=== PATIENT | female | born 1960 | race Caucasian/White ===

== ENCOUNTER 2024-10-26 08:39 | Outpatient (OUT) | payer MEDICARE, SELFPAY ==
--- NOTE | 2024-10-26 09:00 | CA_ITS ---
Patient Name: RENA PORTILLO MR#: [id number] : 1960 Exam Date: 10/26/2024 Ordering Doctor: BELKIS DUPONT M.D. ECHOCARDIOGRAM REPORT PROCEDURE: CA ECHO DOPPLER COMPLETE INDICATIONS: Nonrheumatic tricuspid regurgitation, hypertension COMPARISON: None. DESCRIPTION: COMPLETE ECHOCARDIOGRAM Real-time transthoracic echocardiography with 2D, M-mode, spectral and color flow Doppler performed. QUALITY: Technical quality was good. LEFT VENTRICLE: Normal chamber size. Mild concentric left ventricular hypertrophy. Calculated left ventricular ejection fraction is 66%. LV EF: Global left ventricular systolic function is normal; visually estimated ejection fraction is 60 to 65%. No significant wall motion abnormalities. DIASTOLIC: Normal diastolic function. ATRIAL SEPTUM: Visually appears intact. LEFT ATRIUM: Normal chamber size. RIGHT ATRIUM: Mild dilatation. RIGHT VENTRICLE: Normal chamber size. Normal right ventricular systolic function. TRICUSPID VALVE: Normal mobility and thickness. Mild to moderate regurgitation. No evidence of pulmonary hypertension. RVSP 31 mmHg MITRAL VALVE: Normal mobility and thickness. No evidence of mitral valve stenosis. Mild mitral annular calcification. Mild mitral regurgitation. AORTIC VALVE: Normal trileaflet appearance. No visible sclerosis. Normal leaflet mobility. No evidence of aortic valve stenosis. Trivial aortic regurgitation. AORTIC ROOT: Normal diameter and appearance. Ascending aorta is normal in size. PULMONIC VALVE: Normal thickness and mobility. No stenosis. No regurgitation. PERICARDIUM: No evidence of pericardial effusion. IVC: Collapses with inspirations. CONCLUSION: 1. Global left ventricular systolic function is normal; visually estimated ejection fraction is 60 to 65% 2. Normal right ventricular size and systolic function 3. Mild left ventricular hypertrophy 4. Normal diastolic function 5. The right atrium is mildly dilated 6. Mild to moderate tricuspid regurgitation 7. Mild mitral regurgitation Adult Echocardiography Procedure Report Left Ventricle LVEDD (3.7 - 5.6 cm): 4.51 cm LVESD (2.2 - 4.0 cm): 3.00 cm LVIVS thickness (0.6 - 1.2 cm): 1.18 cm LVPW thickness (0.5 - 1.0 cm): 0.98 cm e': 0.08 m/s E - e': 6.76 LVOT Max Gradient: 4.83 mm[Hg] LVOT Area (cm2): 1.10 m/s Peak Velocity (LVOT): 1.10 m/s Mean Velocity (LVOT): 0.79 m/s LVOT Diameter 2.33 cm Left Atrium LA Volume Index (2D A2C): 34.70 ml/m2 Left Atrium Systolic Dimension: 4.78 cm Mitral Valve MV E to A Ratio: 0.76 Mitral Valve A-Wave Peak Velocity: 0.68 m/s Mitral Valve E-Wave Peak Velocity: 0.52 m/s Right Ventricle Aorta AO Root Diam: 3.39 cm Ascending Ao Diam: 2.99 cm Aortic Valve AoV Area (Peak Feng): 2.98 cm2, 2.98 cm2 AoV Area (VTI): 2.78 cm2, 2.78 cm2 Peak Velocity(Antegrade Flow): 1.58 m/s Peak Gradient(Antegrade Flow): 9.97 mm[Hg] Mean Velocity(Antegrade Flow): 1.09 m/s Mean Gradient(Antegrade Flow): 5.40 mm[Hg] Velocity Time Integral: 37.51 cm Tricuspid Valve Peak Velocity (Regurgitant Flow): 2.65 m/s Pulmonic Valve Mean Gradient: 2.41 mm[Hg] Mean Velocity: 0.71 m/s Peak Velocity: 1.14 m/s, 1.14 m/s Peak Gradient: 5.21 mm[Hg], 5.24 mm[Hg] Right Atrium Right Atrium Systolic Pressure: 77.29 ml, 77.29 ml Dictated by: Desmond Terrell M.D. on 10/26/2024 at 14:51 Approved by: Desmond Terrell M.D. on 10/26/2024 at 14:57
== END 2024-10-26 08:40 | disposition home or self-care (01) ==
LOC: CARD 08:46
PROVIDERS: PCP Nurse Practitioner; Visit Provider Internal Medicine Cardiovascular Disease
DX: I36.1 Nonrheumatic tricuspid (valve) insufficiency (principal)
CPT/HCPCS: 93306